=== PATIENT | female | born 1945 | race Caucasian/White ===

== ENCOUNTER → 2024-03-06 21:00 | Outpatient (REF) | payer MEDICARE, BC, SELFPAY | LOC: DHSLP 21:00 | PROVIDERS: ATTENDING PHYSICIAN Internal Medicine Cardiovascular Disease; FAMILY PHYSICIAN Family Medicine | DX: G47.33 Obstructive sleep apnea (adult) (pediatric) (principal) | CPT/HCPCS: 95800 ==

== ENCOUNTER → 2025-09-03 09:07 | Outpatient (REF) | payer MEDICARE, BC, SELFPAY | LOC: RAD 09:07 | PROVIDERS: ATTENDING PHYSICIAN Internal Medicine Cardiovascular Disease; FAMILY PHYSICIAN Family Medicine | DX: I49.5 Sick sinus syndrome (principal) | CPT/HCPCS: 75572; Q9967 ==